=== PATIENT | male | born 1990 | race Caucasian/White ===

== ENCOUNTER 2016-11-26 04:23 | Emergency (ER) | payer OTHER ==
--- NOTE | 2016-11-26 07:35 | RAD ---
EXAMINATION:CHEST - 2 VIEWS CLINICAL INDICATION: Flulike symptoms. COMPARISON: Prior exam dated 07/20/2010. FINDINGS: The cardiomediastinal silhouette is within normal limits. There is no adenopathy identified. There is no pleural effusion. The lungs are clear. The osseous structures are unremarkable for age. IMPRESSION: Negative PA and lateral views of the chest. No acute cardiopulmonary process is identified.
== END 2016-11-26 05:10 | disposition home or self-care (01) ==
LOC: ED 04:23
DX: J10.1 Influenza due to other identified influenza virus with other respiratory manifestations (principal)